=== PATIENT | male | born 1950 | race Caucasian/White ===

== ENCOUNTER 2022-03-14 09:21 | Day surgery (SDC) | payer MEDICARE, BC ==
[~2022-03-14] VITALS: Ht 167.6 cm; Wt 68.2 kg
[2022-03-14 09:30] VITALS: BP 136/67
[2022-03-14] MEDS ORDERED: fentaNYL/PF 50MCG/1 ML 2ML syringe ONE (09:44)
[2022-03-14] MEDS ORDERED: MIDAZolam 1 MG/ML 5ML VIAL ONE (09:44)
[2022-03-14] MEDS ORDERED: IBUP-2801 PO (09:49)
[2022-03-14] MEDS ORDERED: ASCO-294 PO (09:50)
[2022-03-14] MEDS ORDERED: VITA1CAP (09:51)
[2022-03-14] MEDS ORDERED: UBID1CAP54 PO (09:52)
[2022-03-14] MEDS ORDERED: CHOL50004 PO (09:53)
[2022-03-14] MEDS ORDERED: LEVETIRACETAM (09:57)
[2022-03-14] MEDS ORDERED: ROSUVASTATIN (09:58)
[2022-03-14] MEDS ORDERED: ASPI-1053 PO (09:59)
[2022-03-14] MEDS ORDERED: GINKO BILOBA (10:00)
[2022-03-14] MEDS ORDERED: SAW PALMETTO PO (10:02)
[2022-03-14 11:00] VITALS: BP 113/69
[2022-03-14 11:10] VITALS: BP 110/70
[2022-03-14 11:20] VITALS: BP 109/66
[2022-03-14 11:30] VITALS: BP 110/59
== END 2022-03-14 11:35 | disposition home or self-care (01) ==
LOC: GI LAB 09:21
PROVIDERS: ATTEND Internal Medicine Gastroenterology
DX: Z12.11 Encounter for screening for malignant neoplasm of colon (principal); D12.3 Benign neoplasm of transverse colon; K57.30 Diverticulosis of large intestine without perforation or abscess without bleeding; K64.8 Other hemorrhoids; Z86.010 Personal history of colon polyps
CPT/HCPCS: 45380; 88305; 99153; G0500; J2250; J3010; J7030; Z7512; 45385; 99152; A4620

== ENCOUNTER 2025-02-21 18:11 | Emergency (ER) | payer MEDICARE, BC ==
[~2025-02-21] VITALS: Ht 167.6 cm; Wt 55.8 kg
[~2025-02-21 18:11] MED LIST: ASCO-294 PO; ASPI-1053 PO; CHOL50004 PO; GINKO BILOBA; IBUP-2768 PO; LEVETIRACETAM; ROSUVASTATIN; SAW PALMETTO PO; UBID1CAP54 PO; VITA1CAP
[2025-02-21 18:12] VITALS: BP 161/94; PULSE 67; RESP 15; TEMP 97.8; O2SAT 98
[2025-02-21] MEDS: LIDOcaine 1% W/epiNEPHrine 1:100,000 20ml vial SQ ONE (20:02)
--- NOTE | 2025-02-21 20:03 | RADIOLOGY REPORT ---
CLINICAL HISTORY: Head Strike/Diving Injury TECHNIQUE: Helical imaging carried out from skull base to vertex without intravenous contrast. This e xam was performed according to our departmental dose optimization program. Up-to-date CT equipment an d radiation dose reduction techniques are utilized as appropriate. CTDIVol: 0.14+ 65.72 mGy DLP: 1173.68 mGy-cm WID: COMPARISON: None FINDINGS: Mild cerebral volume loss with concordant prominence of the subarachnoid spaces and ventricles. Mild patchy low attenuation in the cerebral white matter consistent with nonspecific white matter disease. There is no midline shift or mass effect. The rice white matter interfaces are maintained. The basal cisterns are patent. There is no evidence of acute intracranial hemorrhage or extra-axial fluid keshawn ection. The mastoid air cells and visualized paranasal sinuses are well-aerated. IMPRESSION: No acute intracranial abnormality. Mild cerebral volume loss and mild chronic microvascular ischemic change.
--- NOTE | 2025-02-21 20:31 | Physician Documentation ---
History of Present Illness ~ Chief Complaint: Head Injury Stated Complaint: "HIT HEAD ON BOTTOM OF SWIMMING POOL" Time Seen by MD: 19:34 OK to notify your PCP?: Yes HPI This is a 74-year-old male who presents with head pain and scalp laceration after a diving injury, patient reports he was diving into a pool and struck the bottom with his head, patient reports no loss of consciousness and reports not on blood thinners. Bleeding controlled prior to arrival. Patient reports no neck pain or vomiting. Patient reports headache and nausea. Patient reports no other injuries or acute concerns or symptoms. Patient reports last tetanus shot in the last five years. Tetanus within 5 years?: No Medication Reconciliation Allergies: Coded Allergies: No Known Allergies (Unverified , 03/14/22) Scheduled Ascorbic Acid (Vitamin C), 1 TAB PO DAILY, (Reported) Aspirin (Naz Chewable), 81 MG PO DAILY, (Reported) Cholecalciferol (Vitamin D3) (Vitamin D3), 1 CAP PO DAILY, (Reported) Scheduled PRN Ibuprofen (Ibuprofen), 200 MG PO for PRN, (Reported) Ubidecarenone/Vit E Acetate (Co Q-10 100 Mg Softgel), 1 EACH PO for DAILY, (Reported) Vitamin B Complex (Vitamin B Complex), TAB for DAILY, (Reported) [Ginko Biloba], 120 MG for DAILY, (Reported) [Levetiractation], 125 MG for DAILY, (Reported) [Rosuvastatin], 40 MG for DAILY, (Reported) [Sawpaemetto], 540 MG PO DAILY PRN for DAILY, (Reported) Past Medical History Past Medical History: No Pertinent History Review of Systems ROS Headache and scalp laceration as stated above in the HPI, otherwise all systems are reviewed and negative. Physical Exam Vital Signs: Temperature: 97.8, Source: Temporal, Heart Rate: 67, Respiratory Rate: 15, BP: 161/94, Pulse Oximetry: 98, Weight: 55.750 Physical Exam VITALS: Reviewed and as above. GENERAL: Alert, nontoxic appearing, no apparent distress. HEENT: Stellate 3 cm x 3 cm laceration to the posterior crown of the scalp PERRLA, EOMI, no central C-spine tenderness, no neck tenderness, no step-offs, no crepitus, no ecchymosis to the neck. RESPIRATORY: No increased work of breathing, no respiratory distress, speaking in full clear sentences, clear lung sounds in all gillette CV: Regular rate and rhythm no murmur BACK: Nontender to palpation MUSCULOSKELETAL: No deformities, nontender to palpation Procedures Laceration/Wound Repair Laceration/Wound Repair : Location: Scalp Length (cm): 6 Anesthesia: Lidocaine w/ Epi Volume Anesthetic (mls): 6 Prep: irrigated by nurse Margins: revised Foreign Body: not identified Repaired: skin Wound Repaired With: gisella Number of Superficial Sutures: 15 Layer Closure?: No Splint Applied?: No Sling Applied?: No Tolerated Procedure Well?: yes, no complications Progress Results/Orders Results/Orders Orders - JOSEPH FERNANDEZ [employer] Ct Cervical Spine (02/21/25 19:31) Ct Head (02/21/25 19:32) Laceration/I&D Tray Set Up (02/21/25 19:48) Wound Care Orders (02/21/25 19:48) Completed Orders - JOSEPH FERNANDEZ [employer] Ct Cervical Spine (02/21/25 19:31) Ct Head (02/21/25 19:32) Lidocaine 1% W/Epi 1:100,000 (Xylocaine (02/21/25 19:50) Ibuprofen Tablet (Motrin Tablet) (02/21/25 20:25) Acetaminophen 325mg Tablet (Tylenol Tabl (02/21/25 20:25) Medications Received in ER Medications (Trade) Dose Ordered Sig/Guy Route PRN Reason Start Time Stop Time Status Last Admin Dose Admin (Motrin tablet) 400 mg ONCE ONCE PO 02/21/25 20:25 02/21/25 20:26 DC 02/21/25 20:59 400 MG (Tylenol tablet) 650 mg ONCE ONCE PO 02/21/25 20:25 02/21/25 20:26 DC 02/21/25 20:58 650 MG Vital Signs 02/21/25 18:12 Temp 97.8 Pulse 67 Resp 15 B/P (MAP) 161/94 Pulse Ox 98 EKG/XRAY/CT/US/VASC/MRI CT #1: Impression CT OF THE CERVICAL SPINE WITHOUT CONTRAST HISTORY: Head Strike/Diving Injury COMPARISON: None TECHNIQUE: Helical images through the cervical spine were obtained without contrast. Sagittal and coronal reformats were obtained. One or more of the following radiation dose reduction techniques were used for this examination: automated exposure control, adjustment of the mA and/or kV according to patient size, use of iterative reconstruction technique. FINDINGS: No grossly displaced fractures or subluxations identified. Vertebral body heights appear maintained. Degenerative changes characterized by multilevel disc space narrowing and marginal osteophyte formation. This is most advanced at C5- C6 and C6-C7 where there is mild narrowing of the bony spinal canal. Prevertebral soft tissues appear within normal limits. IMPRESSION: No grossly displaced fractures or subluxations identified. Degenerative changes. Electronically Signed by:NELSON WEBER MD Date & Time: 02/21/252117 Dictated by: NELSON WEBER MD Dictation date and time: 02/21/251929 I have reviewed and agree with the radiology report. I have reviewed and interpreted the imaging as: No cervical spine misalignment or fractures CT #2: Impression CLINICAL HISTORY: Head Strike/Diving Injury TECHNIQUE: Helical imaging carried out from skull base to vertex without intravenous contrast. This exam was performed according to our departmental dose optimization program. Up-to-date CT equipment and radiation dose reduction techniques are utilized as appropriate. CTDIVol: 0.14+ 65.72 mGy DLP: 1173.68 mGy-cm WID: COMPARISON: None FINDINGS: Mild cerebral volume loss with concordant prominence of the subarachnoid spaces and ventricles. Mild patchy low attenuation in the cerebral white matter consistent with nonspecific white matter disease. There is no midline shift or mass effect. The rice white matter interfaces are maintained. The basal cisterns are patent. There is no evidence of acute intracranial hemorrhage or extra-axial fluid collection. The mastoid air cells and visualized paranasal sinuses are well-aerated. IMPRESSION: No acute intracranial abnormality. Mild cerebral volume loss and mild chronic microvascular ischemic change. Electronically Signed by:JOSEPH CARDENAS MD Date & Time: 02/21/251999 Dictated by: JOSEPH CARDENAS MD Dictation date and time: 02/21/251929 I have reviewed and agree with the radiology report. I have reviewed and interpreted the imaging as: No intracranial hemorrhage Medical Decision Making Findings This 74-year-old male presented with a stellate laceration to the crown of his scalp after a diving accident in a pool, patient did not lose consciousness and did not report blood thinner use, CT of head not demonstrate evidence of skull fracture or intracranial hemorrhage, CT of C-spine did not demonstrate evidence of spinal fracture or acute spinal misalignment. Patient is otherwise well- appearing with remainder of physical exam benign. The laceration was anesthetized then thoroughly irrigated by nursing staff, there was no evidence of retained foreign body and laceration was well approximated utilizing gisella. Patient provided follow up instructions and return to care precautions which he verbalized understanding of. Differential Dx:Considerations: Include: Closed head injury, Cervical spine injury, Skull facture, Contusion, Foreign body Departure Disposition: HOME / SELF CARE / HOMELESS Impression: Primary Impression: Injury of head Qualified Codes: S09.90XA - Unspecified injury of head, initial encounter Additional Impression: Laceration of scalp without complication Qualified Codes: S01.01XA - Laceration without foreign body of scalp, initial encounter Condition: Improved Discharge Instructions: Sutures, Mcgill, or Adhesive Wound Closure, [id number] Additional Instructions: Please keep the area clean and dry, avoid washing it for the 1st 24 hours though after the 1st 24 hours you may wash it gently and pat it dry. Please follow up in the next 2-3 days for a wound recheck, you may see your primary care provider or return to the emergency department. Please follow up with your primary care provider in the next few days. Follow up with your choice of medical provider in seven days for possible staple removal. Please return to the emergency department for any new or worsening concerning symptoms. Referrals: NO PRIMARY CARE PROVIDER (PCP) Education Educated: Patient Educated regarding: diagnosis, treatment, prognosis, need for follow up Signature Scribe Signature: No scribe Attestation: The note accurately reflects work and decisions made by me.ALEJANDRA Lindsay 02/22/25 02:44 JOSEPH FERNANDEZ Feb 21, 2025 20:31
[2025-02-21] MEDS: acetaminophen 325mg tablet PO ONE (20:58)
[2025-02-21] MEDS: ibuprofen tablet 400 MG TABLET PO ONE (20:59)
--- NOTE | 2025-02-21 21:21 | RADIOLOGY REPORT ---
CT OF THE CERVICAL SPINE WITHOUT CONTRAST HISTORY: Head Strike/Diving Injury COMPARISON: None TECHNIQUE: Helical images through the cervical spine were obtained without contrast. Sagittal and cor onal reformats were obtained. One or more of the following radiation dose reduction techniques were u sed for this examination: automated exposure control, adjustment of the mA and/or kV according to pat ient size, use of iterative reconstruction technique. FINDINGS: No grossly displaced fractures or subluxations identified. Vertebral body heights appear maintained. Degenerative changes characterized by multilevel disc space narrowing and marginal osteophyte formati on. This is most advanced at C5-C6 and C6-C7 where there is mild narrowing of the bony spinal canal. Prevertebral soft tissues appear within normal limits. IMPRESSION: No grossly displaced fractures or subluxations identified. Degenerative changes.
== END 2025-02-21 22:32 | disposition home or self-care (01) ==
LOC: ER 18:12
DX: S01.01XA Laceration without foreign body of scalp, initial encounter (principal); S09.90XA Unspecified injury of head, initial encounter; Z79.82 Long term (current) use of aspirin; X58.XXXA Exposure to other specified factors, initial encounter; Y93.12 Activity, springboard and platform diving; Y92.89 Other specified places as the place of occurrence of the external cause; Y99.8 Other external cause status
CPT/HCPCS: 12002; 70450; 72125; 99284; A6402; J7030; Z7610; A6449